=== PATIENT | male | born 1960 | race American Indian/Alaskan Native ===

== ENCOUNTER 2020-12-20 15:47 | Inpatient (IN) | payer OTHER ==
[2020-12-20] MEDS ORDERED: SODIUM CHLORIDE 0.9% 1000 ML 1,000 ML IV ONE (16:36)
--- NOTE | 2020-12-20 16:39 | Emergency Department Report ---
ED General Adult HPI - General Chief complaint: Upper Respiratory Infection Stated complaint: COUGH PUI?: Yes Time Seen by Provider: 12/20/20 16:11 Source: patient Mode of arrival: Ambulatory Limitations: No Limitations - History of Present Illness Initial comments: 60-year-old male with a past medical history of diabetes presents to the ER today with complaints of cough and shortness of breath. Patient states that his symptoms started 6 days ago. Patient reports a dry cough, with shortness of breath mainly on exertion. He denies any chest pain, wheezing, fever, chills, runny nose, nasal congestion, GI or symptoms. Patient states that he did take a COVID-19 test on December 18, 2020, but is not scheduled to get the results until tomorrow. He states that the urgent care he wanted to get the test, also prescribed him Z-Luan, prednisone and promethazine with codeine for cough which she has been taking but he states that he came to the ER today because his symptoms has been getting worse. He has also been checking his pulse ox on a home pulse oximeter, and he states that at rest his oxygen has been fluctuating between 91% and 95%. Patient states that he has been around his and his son were sick with similar symptoms, but they never got checked for Covid. He states that he has not get any of the COVID-19 vaccines. Complaint: Cough/SOB -: Gradual - Related Data Previous Rx's Medication Instructions Recorded Last Taken Type metFORMIN [Glucophage] 500 mg PO BID 30 Days #60 tablet 10/06/18 Unknown Rx Allergies Allergy/AdvReac Type Severity Reaction Status Date / Time No Known Allergies Allergy Verified 12/20/20 15:51 ED Review of Systems ROS: Stated complaint: COUGH Other details as noted in HPI Comment: All other systems reviewed and negative Constitutional: denies: chills, fever Eyes: denies: eye pain, eye discharge, vision change ENT: denies: ear pain, throat pain Respiratory: shortness of breath, SOB with exertion Cardiovascular: denies: chest pain, palpitations Gastrointestinal: denies: abdominal pain, nausea, diarrhea Genitourinary: denies: urgency, dysuria, frequency, hematuria, discharge, testicular pain, testicular mass Musculoskeletal: denies: back pain, joint swelling, arthralgia Skin: denies: rash, lesions, change in color, change in hair/nails, pruritus Neurological: denies: headache, weakness, numbness, paresthesias, confusion, abnormal gait, vertigo Psychiatric: denies: anxiety, depression, auditory hallucinations, visual hallucinations, homicidal thoughts, suicidal thoughts Hematological/Lymphatic: denies: easy bleeding, easy bruising, swollen glands ED Past Medical Hx - Past Medical History Hx Arthritis: No - Surgical History Additional Surgical History: right knee - Social History Smoking Status: Never Smoker Substance Use Type: None - Medications Home Medications: Home Medications Medication Instructions Recorded Confirmed Last Taken Type metFORMIN [Glucophage] 500 mg PO BID 30 Days #60 tablet 10/06/18 Unknown Rx ED Physical Exam - General Limitations: No Limitations General appearance: alert, in no apparent distress - Head Head exam: Present: atraumatic, normocephalic, normal inspection - Eye Eye exam: Present: normal appearance, PERRL, EOMI Pupils: Present: normal accommodation - ENT ENT exam: Present: normal exam, mucous membranes moist - Neck Neck exam: Present: normal inspection, full ROM - Respiratory Respiratory exam: Present: rales (Right lower lung murray). Absent: respiratory distress, wheezes - Cardiovascular Cardiovascular Exam: Present: normal rhythm, tachycardia, normal heart sounds - GI/Abdominal GI/Abdominal exam: Present: soft. Absent: distended, tenderness, guarding, rebound - Neurological Exam Neurological exam: Present: alert, oriented X3, CN II-XII intact, normal gait - Psychiatric Psychiatric exam: Present: normal affect, normal mood - Skin Skin exam: Present: intact ED Course Vital Signs 12/20/20 15:51 Temperature 99.1 F Pulse Rate 103 H Respiratory 20 Rate Blood Pressure 156/87 O2 Sat by Pulse 93 Oximetry ED Medical Decision Making - Lab Data Result diagrams: 12/20/20 16:56 12/20/20 18:13 - EKG Data EKG shows normal: sinus rhythm Rate: normal (99) - EKG Data Interpretation: normal EKG - Radiology Data Radiology results: report reviewed Patient: SAM ROACH MR# : [id number] : 1960 Acct:[id number] Age/Sex: 60 / M ADM Date: 12/20/20 Loc: ED Attending Dr: Ordering Physician: PATIENCE WANG Date of Service: 12/20/20 Procedure(s): XR chest routine 2V Accession Number(s): [id number] cc: PATIENCE WANG Fluoro Time In Minutes: CHEST 2 VIEWS INDICATION: cough/sob. COMPARISON: None. FINDINGS: Support devices: None. Heart: Within normal limits. Lungs/Pleura: Patchy infiltrate left base laterally. No significant pleural effusion. IMPRESSION: Left basilar pneumonia. Signer Name: Adithya Chun MD Signed: 12/20/2020 5:24 PM Workstation Name: [id number] Transcribed By: ES Dictated By: Adithya Chun MD Electronically Authenticated By: Adithya Chun MD Signed Date/Time: 12/20/201723 DD/ 21 TD/TT: - Medical Decision Making 1640: Patient vital signs reviewed, patient O2 sat at rest was 93% on room air, he was slightly tacky at 103, but he was afebrile. Patient was ambulated by me, and he did not appear to be in respiratory distress nor did he voice any complaint by his oxygen saturation on ambulation did drop to 89% on room air and his heart rate was about 107. Patient symptomology concerning for Covid, and with hypoxia, patient will likely be admitted. Labs/chest x-ray, blood cultures and lactic acid and IV fluids ordered. 1916: Discussed case with Dr Curry for admission Critical care attestation.: If time is entered above; I have spent that time in minutes in the direct care of this critically ill patient, excluding procedure time. ED Disposition Clinical Impression: Pneumonia, Suspected COVID-19 virus infection, Hypoxia Disposition: ADMITTED INPATIENT Is pt being admited?: Yes Condition: Stable Instructions: Bacterial Pneumonia (ED)
[2020-12-20 17:20] LABS: Basophils % (Auto) 0.2 % (0.0-1.8); Hematocrit 47.8 % (35.5-45.6); Lymphocytes # (Auto) 0.9 K/mm3 (1.2-5.4); Lymphocytes % (Auto) 7.9 % (13.4-35.0); Mean Corpuscular HGB Conc 33 % (32-34); Mean Corpuscular Volume 86 fl (84-94); Monocytes % (Auto) 8.9 % (0.0-7.3); Platelet Count 189 K/mm3 (140-440); Red Blood Count 5.58 M/mm3 (3.65-5.03); Red Cell Distribution Width 14.3 % (13.2-15.2)
--- NOTE | 2020-12-20 17:28 | XRay Report ---
CHEST 2 VIEWS INDICATION: cough/sob. COMPARISON: None. FINDINGS: Support devices: None. Heart: Within normal limits. Lungs/Pleura: Patchy infiltrate left base laterally. No significant pleural effusion. IMPRESSION: Left basilar pneumonia. Signer Name: Adithya Chun MD Signed: 12/20/2020 5:24 PM Workstation Name: [id number]
[2020-12-20 17:38] LABS: Alanine Aminotransferase 40 units/L (7-56); BUN/Creatinine Ratio 13; Blood Urea Nitrogen 16 mg/dL (9-20); Hemolysis Index 32
[2020-12-20 18:54] LABS: C-Reactive Protein 5.5 mg/dL (0.00-1.30)
[2020-12-20] MEDS ORDERED: ONDANSETRON 4 MG/2 ML INJ IV PRN (19:17)
[2020-12-20] MEDS ORDERED: ACETAMINOPHEN 325 MG TAB PO PRN (19:17)
[2020-12-20] MEDS ORDERED: oxyCODONE /ACETAMINOPHEN 5-325MG TAB PO PRN (19:17)
[2020-12-20] MEDS ORDERED: HYDROmorphone 1 MG/1 ML INJ IV PRN (19:17)
[2020-12-20] MEDS ORDERED: ALBUTEROL 2.5 MG/3 ML NEBU IH PRN (19:17)
--- NOTE | 2020-12-20 19:22 | History and Physical Report ---
History of Present Illness Chief complaint: I just cannot breathe History of present illness: 60 YO Male with DM presents to ED for evaluation. Patient reports "I just cannot breathe". Patient states that he has experienced shortness of breath, dry cough, decreased exercise tolerance, fatigue, malaise, body aches over the past 1 week with persistent and worsening symptoms over the same timeframe. Patient was seen and evaluated at urgent care and treated as an outpatient therapy. Patient knowledges compliance with therapy with worsening symptoms that persisted during treatment protocol. Patient transported to [facility] via private vehicle for further care and evaluation of the aforementioned symptoms. The patient was seen and evaluated in the emergency department. All lab and imaging studies reviewed. Patient was found to have a pulse oximetry of 87% with exertion which is consistent with acute hypoxemic respiratory failure. Chest x-ray revealed bilateral pneumonia. Patient admitted to medical floor due to increased risk of worsening symptoms. Patient initiated on pneumonia protocol as well as coronavirus protocol. Patient denies unilateral leg swelling, calf pain, prolonged travel/immobility, individual/family history of DVT/PE/bleeding/blood clotting disorders. No prior admission for review. No medication listed at time of admission for reconciliation. Advanced care planning conducted in ED. Past History Past Medical History: diabetes Past Surgical History: No surgical history, Other (Reviewed) Social history: . denies: smoking, alcohol abuse, prescription drug abuse Family history: hypertension Medications and Allergies Allergies Allergy/AdvReac Type Severity Reaction Status Date / Time No Known Allergies Allergy Verified 12/20/20 15:51 Home Medications Medication Instructions Recorded Confirmed Last Taken Type metFORMIN [Glucophage] 500 mg PO BID 30 Days #60 tablet 10/06/18 Unknown Rx Active Meds: Active Medications Acetaminophen (Acetaminophen 325 Mg Tab) 650 mg PO Q4H PRN PRN Reason: Pain MILD(1-3)/Fever >100.5/ADLER Albuterol (Albuterol 2.5 Mg/3 Ml Nebu) 2.5 mg IH Q4HRT PRN PRN Reason: Shortness Of Breath Ascorbic Acid (Ascorbic Acid 500 Mg Tab) 500 mg PO BID [facility] Cholecalciferol (Cholecalciferol (Vit D3) 400 Unit Tab) 1,000 unit PO QDAY FITZ Heparin Sodium (Porcine) (Heparin 5,000 Unit/1 Ml Vial) 5,000 unit SUB-Q Q12HR FITZ Hydromorphone HCl (Hydromorphone 1 Mg/1 Ml Inj) 0.5 mg IV Q23H PRN PRN Reason: Pain , Severe (7-10) Ceftriaxone Sodium (Rocephin/Ns 2 Gm/100 Ml) 2 gm in 100 mls @ 200 mls/hr IV Q24H FITZ; Protocol Azithromycin (Zithromax/Ns) 500 mg in 250 mls @ 250 mls/hr IV Q24H FITZ; Protocol Methylprednisolone Sodium Succinate (Methylprednisolone Sod Succinate 40 Mg/1 Ml Inj) 40 mg IV Q8HR FITZ Ondansetron HCl (Ondansetron 4 Mg/2 Ml Inj) 4 mg IV Q8H PRN PRN Reason: Nausea And Vomiting Oxycodone/Acetaminophen (Oxycodone /Acetaminophen 5-325mg Tab) 1 tab PO Q16H PRN PRN Reason: Pain, Moderate (4-6) Sodium Chloride (Sodium Chloride 0.9% 10 Ml Flush Syringe) 10 ml IV BID FITZ Sodium Chloride (Sodium Chloride 0.9% 10 Ml Flush Syringe) 10 ml IV PRN PRN PRN Reason: LINE FLUSH Review of Systems Constitutional: fatigue, weakness, malaise, no weight loss, no weight gain Ears, nose, mouth and throat: no ear pain, no tinnitis, no decreased hearing, no nasal congestion Cardiovascular: shortness of breath, no chest pain, no palpitations, no edema, no syncope Respiratory: no cough, no excessive sputum, no shortness of breath Gastrointestinal: no abdominal pain, no nausea, no diarrhea, no change in bowel habits Genitourinary Male: no hematuria, no urinary frequency, no urinary hesitancy, no incontinence Rectal: no incontinence Musculoskeletal: no neck pain, no arm numbness/tingling, no low back pain, no shooting leg pain Integumentary: no rash, no redness, no wounds, no boils Neurological: no transient paralysis, no weakness, no parathesias, no tingling, no lack of coordination Psychiatric: no anxiety, no memory loss, no change in sleep habits, no sleep disturbances Exam - Constitutional Vitals: Temp Pulse Resp BP Pulse Ox 99.1 F 103 H 20 156/87 93 12/20/20 15:51 12/20/20 15:51 12/20/20 15:51 12/20/20 15:51 12/20/20 15:51 General appearance: Present: mild distress - EENT Eyes: Present: PERRL ENT: hearing intact, clear oral mucosa - Neck Neck: Present: supple, normal ROM - Respiratory Respiratory effort: labored, accessory muscle use Respiratory: bilateral: diminished, rhonchi - Cardiovascular Heart Sounds: Present: S1 & S2. Absent: rub, click - Extremities Extremities: pulses symmetrical, No edema Peripheral Pulses: within normal limits - Abdominal General gastrointestinal: Present: soft, non-tender, non-distended, normal bowel sounds Male genitourinary: Present: normal - Integumentary Integumentary: Present: clear, warm, dry - Musculoskeletal Musculoskeletal: generalized weakness - Psychiatric Psychiatric: appropriate mood/affect, intact judgment & insight - Neurologic Neurologic: CNII-XII intact, moves all extremities HEART Score - HEART Score Troponin: Troponin T < 0.010 ng/mL (0.00-0.029) 12/20/20 16:56 Results - Labs CBC & Chem 7: 12/20/20 16:56 12/20/20 18:13 Labs: Abnormal lab results 12/20/20 12/20/20 12/20/20 Range/Units 16:56 16:56 18:13 WBC 11.3 H (4.5-11.0) K/mm3 RBC 5.58 H (3.65-5.03) M/mm3 Hgb 16.0 H (11.8-15.2) gm/dl Hct 47.8 H (35.5-45.6) % Lymph % (Auto) 7.9 L (13.4-35.0) % [place] % (Auto) 8.9 H (0.0-7.3) % Lymph # (Auto) 0.9 L (1.2-5.4) K/mm3 [place] # (Auto) 1.0 H (0.0-0.8) K/mm3 Seg Neutrophils % 83.0 H (40.0-70.0) % Seg Neutrophils # 9.4 H (1.8-7.7) K/mm3 D-Dimer 690.93 H (0-234) ng/mlDDU Sodium 133 L (137-145) mmol/L Chloride 92.3 L (98-107) mmol/L Glucose 200 H (75-100) mg/dL Ferritin (30.0-300.0) ng/mL AST 41 H (5-40) units/L Lactate Dehydrogenase (91-180) units/L C-Reactive Protein (0.00-1.30) mg/dL 12/20/20 12/20/20 Range/Units 18:13 18:13 WBC (4.5-11.0) K/mm3 RBC (3.65-5.03) M/mm3 Hgb (11.8-15.2) gm/dl Hct (35.5-45.6) % Lymph % (Auto) (13.4-35.0) % [place] % (Auto) (0.0-7.3) % Lymph # (Auto) (1.2-5.4) K/mm3 [place] # (Auto) (0.0-0.8) K/mm3 Seg Neutrophils % (40.0-70.0) % Seg Neutrophils # (1.8-7.7) K/mm3 D-Dimer (0-234) ng/mlDDU Sodium (137-145) mmol/L Chloride (98-107) mmol/L Glucose 179 H (75-100) mg/dL Ferritin 841.3 H (30.0-300.0) ng/mL AST (5-40) units/L Lactate Dehydrogenase 428 H (91-180) units/L C-Reactive Protein 5.50 H (0.00-1.30) mg/dL Assessment and Plan - Patient Problems (1) Acute hypoxemic respiratory failure Current Visit: No Status: Acute Plan to address problem: Chest x-ray, supplemental oxygen, pulse oximetry, nebulizer therapy, prone positioning while in bed, (2) Pneumonia Current Visit: No Status: Acute Plan to address problem: Pneumonia protocol: Chest x-ray, CBC, CMP, supplemental oxygen, pulse oximetry, nebulizer therapy, IV antibiotic therapy, blood culture. (3) Suspected COVID-19 virus infection Current Visit: No Status: Acute Plan to address problem: Coronavirus protocol: IV antibiotic therapy, IV steroid therapy, pulse oximetry, vitamin D therapy, vitamin C therapy, zinc therapy, prone positioning while in bed, prophylactic anticoagulation. (4) COVID-19 vaccination not done Current Visit: No Status: Acute Plan to address problem: Patient counseled (5) DVT prophylaxis Current Visit: No Status: Acute Plan to address problem: SCD to bilateral lower extremities while in bed, prophylactic anticoagulation.
[2020-12-21] MEDS: cefTRIAXone/NS 2 GM/100 ML 2 GM/100 ML BAG IV SCH ×2 (02:43→19:11)
[2020-12-21] MEDS: ASCORBIC ACID 500 MG TAB PO SCH ×3 (02:43→21:43)
[2020-12-21] MEDS: HEPARIN 5,000 UNIT/1 ML VIAL SUB-Q SCH ×3 (02:43→21:43)
[2020-12-21] MEDS: methylPREDNISolone Sod Succinate 40 MG/1 ML INJ IV SCH ×3 (02:49→19:11)
[2020-12-21] MEDS: ZINC SULFATE 220 MG CAP PO SCH ×3 (02:52→21:43)
[2020-12-21] MEDS: AZITHROMYCIN/NS 500 MG/250 ML 500 MG/250 ML BAG IV SCH ×2 (03:59→20:26)
[2020-12-21 08:43] LABS: Hematocrit 44.2 % (35.5-45.6); Hemoglobin 14.9 gm/dl (11.8-15.2); Mean Corpuscular HGB Conc 34 % (32-34); Mean Corpuscular Volume 84 fl (84-94); Platelet Count 217 K/mm3 (140-440); Red Blood Count 5.28 M/mm3 (3.65-5.03); Red Cell Distribution Width 13.9 % (13.2-15.2)
[2020-12-21 08:56] LABS: BUN/Creatinine Ratio 15; Blood Urea Nitrogen 16 mg/dL (9-20); Calcium 8.7 mg/dL (8.4-10.2); Hemolysis Index 2
[2020-12-21] MEDS: CHOLECALCIFEROL (VIT D3) 1000 UNIT (25 mcg) TAB PO SCH (09:53)
--- NOTE | 2020-12-21 13:46 | Progress Note ---
Assessment and Plan Assessment and plan: 60 YO Male with DM presents to ED for evaluation. Patient reports "I just cannot breathe". Patient states that he has experienced shortness of breath, dry cough, decreased exercise tolerance, fatigue, malaise, body aches over the past 1 week with persistent and worsening symptoms over the same timeframe. Patient was seen and evaluated at urgent care and treated as an outpatient therapy. Patient knowledges compliance with therapy with worsening symptoms that persisted during treatment protocol. Patient transported to [facility] via private vehicle for further care and evaluation of the aforementioned symptoms. The patient was seen and evaluated in the emergency department. All lab and imaging studies reviewed. Patient was found to have a pulse oximetry of 87% with exertion which is consistent with acute hypoxemic respiratory failure. Chest x-ray revealed bilateral pneumonia. Patient admitted to medical floor due to increased risk of worsening symptoms. Patient initiated on pneumonia prot ocol as well as coronavirus protocol. Patient denies unilateral leg swelling, calf pain, prolonged travel/immobility, individual/family history of DVT/PE/bleeding/blood clotting disorders. No prior admission for review. No medication listed at time of admission for reconciliation. Advanced care planning conducted in ED. 12/21: Patient seen and examined this morning resting comfortable. Continue current management. Awaiting Covid test results. Encourage proning continue steroids. If hypoxic will start on remdesivir. I also encouraged him to have his family get tested as he reports that they were also sick. (1) Acute hypoxemic respiratory failure Current Visit: No Status: Acute Plan to address problem: Chest x-ray, supplemental oxygen, pulse oximetry, nebulizer therapy, prone positioning while in bed, (2) Pneumonia Current Visit: No Status: Acute Plan to address problem: Pneumonia protocol: Chest x-ray, CBC, CMP, supplemental oxygen, pulse oximetry, nebulizer therapy, IV antibiotic therapy, blood culture. (3) Suspected COVID-19 virus infection Current Visit: No Status: Acute Plan to address problem: Coronavirus protocol: IV antibiotic therapy, IV steroid therapy, pulse oximetry, vitamin D therapy, vitamin C therapy, zinc therapy, prone positioning while in bed, prophylactic anticoagulation. (4) COVID-19 vaccination not done Current Visit: No Status: Acute Plan to address problem: Patient counseled (5) DVT prophylaxis Current Visit: No Status: Acute Plan to address problem: SCD to bilateral lower extremities while in bed, prophylactic anticoagulation. History Interval history: Patient seen and examined this morning reports some improvement in symptoms. No acute distress noted oxygen at this time Hospitalist Physical - Physical exam Narrative exam: VITAL SIGNS: Reviewed. GENERAL: The patient appears normally developed, Vital signs as documented. HEAD: No signs of head trauma. EYES: Pupils are equal. Extraocular motions intact. EARS: Hearing grossly intact. MOUTH: Oropharynx is normal. NECK: No adenopathy, no JVD. CHEST: Chest with diminished breath sounds bilaterally. No wheezes, rales, or rhonchi. CARDIAC: Regular rate and rhythm. S1 and S2, without murmurs, gallops, or rubs. VASCULAR: No Edema. Peripheral pulses normal and equal in all extremities. ABDOMEN: Soft, non tender and non distended. No rebound or guarding, and no masses palpated. Bowel Sounds normal. MUSCULOSKELETAL: Good range of motion of all major joints. Extremities without clubbing, cyanosis or edema. NEUROLOGIC EXAM: Alert and oriented x 3 No focal sensory or strength deficits. Speech normal. Follows commands. PSYCHIATRIC: Mood normal. SKIN: detail exam as documented in skin assessment - Constitutional Vitals: Temp Pulse Resp BP Pulse Ox 98.7 F 87 18 133/93 94 12/21/20 11:15 12/21/20 11:15 12/21/20 11:15 12/21/20 11:15 12/21/20 11:15 General appearance: Present: mild distress HEART Score - HEART Score Troponin: Troponin T < 0.010 ng/mL (0.00-0.029) 12/20/20 16:56 Results - Labs CBC & Chem 7: 12/21/20 07:28 12/21/20 07:28 Labs: Laboratory Last Values WBC 10.1 K/mm3 (4.5-11.0) 12/21/20 07:28 RBC 5.28 M/mm3 (3.65-5.03) H 12/21/20 07:28 Hgb 14.9 gm/dl (11.8-15.2) 12/21/20 07:28 Hct 44.2 % (35.5-45.6) 12/21/20 07:28 MCV 84 fl (84-94) 12/21/20 07:28 MCH 28 pg (28-32) 12/21/20 07:28 MCHC 34 % (32-34) 12/21/20 07:28 RDW 13.9 % (13.2-15.2) 12/21/20 07:28 Plt Count 217 K/mm3 (140-440) 12/21/20 07:28 Lymph % (Auto) 7.9 % (13.4-35.0) L 12/20/20 16:56 [place] % (Auto) 8.9 % (0.0-7.3) H 12/20/20 16:56 Eos % (Auto) 0.0 % (0.0-4.3) 12/20/20 16:56 Baso % (Auto) 0.2 % (0.0-1.8) 12/20/20 16:56 Lymph # (Auto) 0.9 K/mm3 (1.2-5.4) L 12/20/20 16:56 [place] # (Auto) 1.0 K/mm3 (0.0-0.8) H 12/20/20 16:56 Eos # (Auto) 0.0 K/mm3 (0.0-0.4) 12/20/20 16:56 Baso # (Auto) 0.0 K/mm3 (0.0-0.1) 12/20/20 16:56 Seg Neutrophils % Telecommunications Switch Technician 12/21/20 07:28 Seg Neutrophils # 9.4 K/mm3 (1.8-7.7) H 12/20/20 16:56 D-Dimer 690.93 ng/mlDDU (0-234) H 12/20/20 18:13 Sodium 135 mmol/L (137-145) L 12/21/20 07:28 Potassium 4.6 mmol/L (3.6-5.0) 12/21/20 07:28 Chloride 98.2 mmol/L (98-107) 12/21/20 07:28 Carbon Dioxide 23 mmol/L (22-30) 12/21/20 07:28 Anion Gap 18 mmol/L 12/21/20 07:28 BUN 16 mg/dL (9-20) 12/21/20 07:28 Creatinine 1.1 mg/dL (0.8-1.3) 12/21/20 07:28 Estimated GFR > 60 ml/min 12/21/20 07:28 BUN/Creatinine Ratio 15 % 12/21/20 07:28 Glucose 298 mg/dL (75-100) H 12/21/20 07:28 Lactic Acid 1.60 mmol/L (0.7-2.0) 12/20/20 16:56 Calcium 8.7 mg/dL (8.4-10.2) 12/21/20 07:28 Ferritin 841.3 ng/mL (30.0-300.0) H 12/20/20 18:13 Total Bilirubin 0.50 mg/dL (0.1-1.2) 12/20/20 16:56 AST 41 units/L (5-40) H 12/20/20 16:56 ALT 40 units/L (7-56) 12/20/20 16:56 Alkaline Phosphatase 63 units/L (35-129) 12/20/20 16:56 Lactate Dehydrogenase 428 units/L (91-180) H 12/20/20 18:13 Troponin T < 0.010 ng/mL (0.00-0.029) 12/20/20 16:56 C-Reactive Protein 5.50 mg/dL (0.00-1.30) H 12/20/20 18:13 Total Protein 7.7 g/dL (6.3-8.2) 12/20/20 16:56 Albumin 4.0 g/dL (3.9-5) 12/20/20 16:56 Albumin/Globulin Ratio 1.1 % 12/20/20 16:56 Microbiology: Microbiology 12/20/20 17:06 Peripheral/Venous Blood Culture - Preliminary Culture in Progress 12/20/20 16:56 Peripheral/Venous Blood Culture - Preliminary Culture in Progress Patel/IV: Voiding Method Toilet Active Medications - Current Medications Current Medications: Generic Name Dose Route Start Last Admin Trade Name Freq PRN Reason Stop Dose Admin Acetaminophen 650 mg 12/20/20 19:17 12/21/20 03:59 Acetaminophen 325 Mg Tab PO 650 mg Q4H PRN Administration Pain MILD(1-3)/Fever >100.5/ADLER Albuterol 2.5 mg 12/20/20 19:17 Albuterol 2.5 Mg/3 Ml Nebu IH Q4HRT PRN Shortness Of Breath Ascorbic Acid 500 mg 12/20/20 22:00 12/21/20 09:53 Ascorbic Acid 500 Mg Tab PO 500 mg BID FITZ Administration Cholecalciferol 1,000 unit 12/21/20 10:00 12/21/20 09:53 Cholecalciferol (Vit D3) 1000 Unit (25 Mcg) Tab PO 1,000 unit QDAY FITZ Administration Heparin Sodium (Porcine) 5,000 unit 12/20/20 22:00 12/21/20 09:53 Heparin 5,000 Unit/1 Ml Vial SUB-Q 5,000 unit Q12HR FITZ Administration Hydromorphone HCl 0.5 mg 12/20/20 19:17 Hydromorphone 1 Mg/1 Ml Inj IV Q23H PRN Pain , Severe (7-10) Ceftriaxone Sodium 2 gm in 100 mls @ 200 mls/hr 12/20/20 20:00 12/21/20 02:43 Rocephin/Ns 2 Gm/100 Ml IV 200 mls/hr Q24H FITZ Administration Protocol Azithromycin 500 mg in 250 mls @ 250 mls/hr 12/20/20 20:00 12/21/20 03:59 Zithromax/Ns IV 250 mls/hr Q24H FITZ Administration Protocol Methylprednisolone Sodium Succinate 40 mg 12/20/20 20:00 12/21/20 09:56 Methylprednisolone Sod Succinate 40 Mg/1 Ml Inj IV 40 mg Q8H FITZ Administration Ondansetron HCl 4 mg 12/20/20 19:17 Ondansetron 4 Mg/2 Ml Inj IV Q8H PRN Nausea And Vomiting Oxycodone/Acetaminophen 1 tab 12/20/20 19:17 Oxycodone /Acetaminophen 5-325mg Tab PO Q16H PRN Pain, Moderate (4-6) Sodium Chloride 10 ml 12/20/20 22:00 12/21/20 09:54 Sodium Chloride 0.9% 10 Ml Flush Syringe IV 10 ml BID FITZ Administration Sodium Chloride 10 ml 12/20/20 19:17 Sodium Chloride 0.9% 10 Ml Flush Syringe IV PRN PRN LINE FLUSH Zinc Sulfate 220 mg 12/20/20 22:00 12/21/20 09:53 Zinc Sulfate 220 Mg Cap PO 220 mg BID FITZ Administration Nutrition/Malnutrition Assess - Dietary Evaluation Nutrition/Malnutrition Findings: Nutrition Notes Start: 12/21/20 09:51 Freq: Status: Active Protocol: Document 12/21/20 09:52 SARAH (Rec: 12/21/20 10:13 SARAH [id number]) Nutrition Notes Need for Assessment generated from: [facility] Initial or Follow up Assessment Other Pertinent Diagnosis Cough, SOB, possible assoc w/ COVID-19 Current Diet Cardiac Diet (since D 12/21). Labs/Tests 12/21: Na 135, Glu 298. Pertinent Medications 12/21: Vit C, Vit D3, Zn. Height 5 ft 8 in Weight 86.183 kg [place] Body Weight (kg) 70.00 BMI 28.8 Intake Prior to Admission Poor Weight Status Overweight Percent of energy/protein needs met: Prescribed Cardiac Diiet provides with energy/protein needs (2,230 Kcal/85 g) during LOS. Burn Absent Trauma Absent GI Symptoms None Food Allergy No Skin Integrity/Comment Integumentary; clear, warm, dry. Minimum of two criteria No physical signs of malnutrition #1 Nutrition Diagnosis Inadequate energy intake Etiology Pt Cough and SOB symptoms affected his appetite and PO intake of meals for several days prior to admission. As Evidenced by Signs and Symptoms Abnormal chemistry lab values and MD diagnosis. Is patient on ventilator? No Is Patient Ambulatory and/or Out of Bed Yes REE-([facility]-ambulatory/OOB) [ 2153.229 NUTR.[id number]] Kcal/Kg value to use for calculation 26 Approximate Energy Requirements Using 2241 kcal/Kg Calculation Used for Recommendations Kcal/kg Additional Notes Protein: 1.0-1.2 g//Kg/day; 70 -84 g/day; 280-336 Kcal/day ( from IBW). Fluidsw: 1.0 ml/Kcal/day, or as per MD. Nutrition Intervention Change Diet Order: Continue Cardiac Diet. Goal #1 Maintain body weight within +/ -3% of current BWt during LOS. Goal #2 Reach and maintain acceptable chemistry lab values during LOS. Follow-Up By: 12/28/20 Additional Comments Continue monitoring acceptance of foods, % PO intake of meals, Hydration, and BM.
[2020-12-21 17:47] LABS: Band Neutrophils # (Manual) 0.5 K/mm3; Total Cells Counted 100
[2020-12-21 17:48] LABS: Platelet Estimate Consistent w Auto
[2020-12-22] MEDS: methylPREDNISolone Sod Succinate 40 MG/1 ML INJ IV SCH ×2 (02:24→10:19)
[2020-12-22 05:10] VITALS: BP 133/87
--- NOTE | 2020-12-22 08:44 | Discharge Summary ---
Providers - Providers Date of Admission: 12/20/20 19:17 Attending physician: ADRIANA DENISE MD Primary care physician: PARTS ROOM ASSISTANT Hospitalization Reason for admission: Shortness of breath Condition: Stable Hospital course: 60 YO Male with DM presents to ED for evaluation. Patient reports "I just cannot breathe". Patient states that he has experienced shortness of breath, dry cough, decreased exercise tolerance, fatigue, malaise, body aches over the past 1 week with persistent and worsening symptoms over the same timeframe. Patient was seen and evaluated at urgent care and treated as an outpatient therapy. Patient knowledges compliance with therapy with worsening symptoms that persisted during treatment protocol. Patient transported to [facility] via private vehicle for further care and evaluation of the aforementioned symptoms. The patient was seen and evaluated in the emergency department. All lab and imaging studies reviewed. Patient was found to have a pulse oximetry of 87% with exertion which is consistent with acute hypoxemic respiratory failure. Chest x-ray revealed bilateral pneumonia. Patient admitted to medical floor due to increased risk of worsening symptoms. Patient initiated on pneumonia protocol as well as coronavirus protocol. Patient denies unilateral leg swelling, calf pain, prolonged travel/immobility, individual/family history of DVT/PE/bleeding/blood clotting disorders. No prior admission for review. No medication listed at time of admission for reconciliation. Advanced care planning conducted in ED. 12/21: Patient seen and examined this morning resting comfortable. Continue current management. Awaiting Covid test results. Encourage proning continue steroids. If hypoxic will start on remdesivir. I also encouraged him to have his family get tested as he reports that they were also sick. 12/22: Patient continues to do well this morning no worsening distress. He has been on room air with no worsening shortness of breath. He stable for discharge I recommended that he has his family tested and quarantined follow the guidelines by CDC regarding vaccination and social distancing. He verbalized understanding. He is to have a walk test prior to discharge (1) Acute hypoxemic respiratory failure (2) Pneumonia (3) sepsis secondary to COVID-19 virus infection (4) COVID-19 vaccination not done Current Visit: No Status: Acute Plan to address problem: Patient counseled Disposition: 01 HOME / SELF CARE / HOMELESS Final Discharge Diagnosis (Prints w/discharge instructions): Sepsis secondary to COVID-19 Time spent for discharge: 35 mins Core Measure Documentation - Palliative Care Palliative Care/ Comfort Measures: Not Applicable - Core Measures Any of the following diagnoses?: none Exam - Physical Exam Narrative exam: VITAL SIGNS: Reviewed. GENERAL: The patient appears normally developed, Vital signs as documented. HEAD: No signs of head trauma. EYES: Pupils are equal. Extraocular motions intact. EARS: Hearing grossly intact. MOUTH: Oropharynx is normal. NECK: No adenopathy, no JVD. CHEST: Chest with diminished breath sounds bilaterally. No wheezes, rales, or rhonchi. CARDIAC: Regular rate and rhythm. S1 and S2, without murmurs, gallops, or rubs. VASCULAR: No Edema. Peripheral pulses normal and equal in all extremities. ABDOMEN: Soft, non tender and non distended. No rebound or guarding, and no masses palpated. Bowel Sounds normal. MUSCULOSKELETAL: Good range of motion of all major joints. Extremities without clubbing, cyanosis or edema. NEUROLOGIC EXAM: Alert and oriented x 3 No focal sensory or strength deficits. Speech normal. Follows commands. PSYCHIATRIC: Mood normal. SKIN: detail exam as documented in skin assessment - Constitutional Vitals: Temp Pulse Resp BP Pulse Ox 98.4 F 88 16 133/87 91 12/22/20 04:29 12/22/20 04:29 12/22/20 04:29 12/22/20 04:29 12/22/20 04:29 Plan Activity: advance as tolerated, fall precautions Diet: low fat Special Instructions: record daily weights, record daily BP diary Plan of Treatment: Follow CDC guidelines for vaccination and social distancing to protect yourself and your family Follow up with: PRIMARY CARE, [Primary Care Provider] - 7 Days Prescriptions: dexAMETHasone [Dexamethasone] 6 mg PO DAILY #8 tablet Apixaban [Eliquis] 2.5 mg PO BID #60 tablet Ascorbic Acid [Vitamin C] 500 mg PO BID #60 tablet Cholecalciferol Vit D3 [Vitamin D3 1,000 UNIT TAB] 1,000 unit PO QDAY #30 tablet Zinc Sulfate 220 mg PO BID #60 capsule
[2020-12-22] MEDS: HEPARIN 5,000 UNIT/1 ML VIAL SUB-Q SCH (10:10)
[2020-12-22] MEDS: ZINC SULFATE 220 MG CAP PO SCH (10:10)
[2020-12-22] MEDS: CHOLECALCIFEROL (VIT D3) 1000 UNIT (25 mcg) TAB PO SCH (10:10)
[2020-12-22] MEDS: ASCORBIC ACID 500 MG TAB PO SCH (10:10)
--- NOTE | 2020-12-27 14:26 | Electrocardiograph Report ---
[facility] Test Date: 2020-12-20 Test Time: 16:39:58 Pat Name: SAM ROACH Department: Room: A353 1 Gender: M Housekeeping Lead: EARNEST : 1960 Requested By: PATIENCE WANG Order Number: [id number] Reading MD: Iris Rogers Measurements Intervals [place] Rate: 99 P: 49 CT: 133 QRS: -17 QRSD: 82 T: 22 QT: 335 QTc: 431 Interpretive Statements Sinus rhythm No previous ECG available for comparison Electronically Signed On 12-27-2020 14:26:13 EDT by Iris Rogers
== END 2020-12-22 16:00 | disposition home or self-care (01) | DRG 177 ==
LOC: ED 15:47 → 3A 19:17
PROVIDERS: ADMIT Internal Medicine; ATTEND Internal Medicine
DX: U07.1 COVID-19 (principal); J96.01 Acute respiratory failure with hypoxia; J12.82 Pneumonia due to coronavirus disease 2019; E11.9 Type 2 diabetes mellitus without complications; Z82.49 Family history of ischemic heart disease and other diseases of the circulatory system
CPT/HCPCS: 36415; 71046; 80048; 80053; 82140; 82728; 82947; 83615; 84145; 84484; 85007; 85025; 85379; 86140; 87040; 93005; G0378; J0456; J0696; J1644; J2920; J7030; U0003